=== PATIENT | female | born 1955 | race Caucasian/White ===

== ENCOUNTER → 2017-04-09 | Outpatient (CLI) | payer BC ==
[~2017-04-09] MED LIST: BUPRTAB PO; CALC-338 PO; CHOL100010 PO; LEVO112T2 PO; LISI-461 PO; MULT-506 PO; OMEG10007 PO; RSTOPS OPB
[2017-04-09 12:42] LABS: BLOOD UREA NITROGEN 12 mg/dl (7-18); BUN/CREATININE RATIO 12.3 (10-20); CALCIUM 9.1 mg/dl (8.5-10.1); CARBON DIOXIDE 27 mmol/L (21-32); CHLORIDE 108 mmol/L (98-107); CREATININE 0.95 mg/dl (0.60-1.20); GLUCOSE 93 mg/dl (70-99); POTASSIUM 4.1 mmol/L (3.5-5.1); SODIUM 142 mmol/L (136-145)
[2017-04-09 12:43] LABS: ESTIMATED AVERAGE GLUCOSE 123 mg/dl; HA1C FLAG Normal (Normal)
== END | disposition home or self-care (01) ==
LOC: C.LABBFT 07:58
PROVIDERS: ATTEND Nurse Practitioner
DX: I10 Essential (primary) hypertension (principal); R73.03 Prediabetes

== ENCOUNTER → 2017-04-22 | Outpatient (CLI) | payer BC ==
--- NOTE | 2017-04-23 09:07 | MAMMOGRAPHY REPORT ---
BILATERAL DIGITAL SCREENING MAMMOGRAM TOMOSYNTHESIS WITH CAD: 04/22/2017 CLINICAL HISTORY: Routine screening examination. TECHNIQUE: Breast tomosynthesis in addition to standard 2D mammography was performed. Current study was also evaluated with a Computer Aided Detection (CAD) system. COMPARISON: Comparison is made to exams dated: 07/19/2014 mammogram, 12/30/2013 mammogram, 12/30/2013 u ltrasound, 06/06/2013 mammogram, 06/06/2013 ultrasound, and 06/01/2013 mammogram - [facility] enter. BREAST COMPOSITION: The tissue of both breasts is heterogeneously dense, which may obscure small mas ses. FINDINGS: The parenchymal pattern is unchanged. No developing mass, architectural distortion or clus ter of suspicious microcalcifications is seen in either breast. IMPRESSION: ACR BI-RADS CATEGORY 2: BENIGN There is no mammographic evidence of malignancy. A 1 year screening mammogram is recommended. The pa tient will receive written notification of the results. Approximately 10% of breast cancers are not detected with mammography. A negative mammographic report should not delay biopsy if a clinically suggestive mass is present. Noreen Strauss M.D. ay/:04/22/2017 17:26:59 Medical Sonographer: Katrina BRISCOE([place])(M), [facility] letter sent: Normal 1/2 BI-RADS Code: ACR BI-RADS Category 2: Benign
== END | disposition home or self-care (01) ==
LOC: C.MAMM 08:08
PROVIDERS: ATTEND Internal Medicine
DX: Z12.31 Encounter for screening mammogram for malignant neoplasm of breast (principal)

== ENCOUNTER → 2017-07-10 | Outpatient (CLI) | payer BC ==
[2017-07-10 13:57] LABS: THYROID STIMULATING HORMONE 1.16 uIu/ml (0.300-4.500)
== END | disposition home or self-care (01) ==
LOC: C.LAB1850 12:06
PROVIDERS: ATTEND Internal Medicine Endocrinology, Diabetes & Metabolism
DX: E05.00 Thyrotoxicosis with diffuse goiter without thyrotoxic crisis or storm (principal); M81.0 Age-related osteoporosis without current pathological fracture

== ENCOUNTER → 2017-07-13 | Outpatient (CLI) | payer BC ==
[2017-07-13 18:19] LABS: CALCIUM URINE 13.4 mg/dl
== END | disposition home or self-care (01) ==
LOC: C.LAB1850 16:01
PROVIDERS: ATTEND Internal Medicine Endocrinology, Diabetes & Metabolism
DX: M81.0 Age-related osteoporosis without current pathological fracture (principal)

== ENCOUNTER → 2017-07-27 | Outpatient (CLI) | payer BC ==
[2017-07-27 14:31] LABS: BLOOD UREA NITROGEN 12 mg/dl (7-18); BUN/CREATININE RATIO 11.9 (10-20); CALCIUM 9.3 mg/dl (8.5-10.1); CARBON DIOXIDE 27 mmol/L (21-32); CHLORIDE 101 mmol/L (98-107); GLUCOSE 88 mg/dl (70-99); MAGNESIUM 2.1 mg/dl (1.8-2.4); POTASSIUM 3.8 mmol/L (3.5-5.1); SODIUM 136 mmol/L (136-145)
== END | disposition home or self-care (01) ==
LOC: C.LAB1850 13:14
PROVIDERS: ATTEND Internal Medicine Endocrinology, Diabetes & Metabolism
DX: R00.2 Palpitations (principal); M85.80 Other specified disorders of bone density and structure, unspecified site

== ENCOUNTER 2018-01-09 10:03 | Emergency (ER) | payer BC ==
[~2018-01-09] VITALS: Ht 152.4 cm; Wt 80.6 kg
[2018-01-09 10:07] VITALS: TEMP 37; Ht 152.4 cm; Wt 80.6 kg
[2018-01-09] MEDS ORDERED: LEVO112T4 PO (10:44)
[2018-01-09] MEDS ORDERED: LISI40TA PO (10:45)
[2018-01-09] MEDS ORDERED: CHOL2000 PO (10:47)
--- NOTE | 2018-01-09 10:47 | EMERGENCY ROOM VISIT NOTE ---
History Report prepared by Olegario: Lynn Gavin Under the Supervision of: Dr. Yadiel Toledo M.D. First contact with patient: 10:17 Chief Complaint: EYE ASSESSMENT Stated Complaint: BURST BLOOD VESSEL IN EYE History of Present Illness The patient is a 62 year old female who presents to the Emergency Room with complaints of a burst blood vessel in her left eye beginning this morning. She denies any pain or changes in her vision. She also reports no blood has come out of her eyes. She notes lubricating drops help for a while. She states this has never happened before and she randomly woke up with it this morning. She denies any recent vomiting, history of extreme coughing, or straining. 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 A total of ten systems were reviewed and were otherwise negative. Family History FH: cancer FHx: diabetes mellitus Heart disease High blood pressure Social History Smoking Status: Never Smoker Smokeless Tobacco Use: No Alcohol Use: occasionally Occupation Status: employed Current/Historical Medications Scheduled Bupropion Hcl (Wellbutrin Xl), 150 MG PO DAILY Cholecalciferol (Vitamin D3), 4,000 UNITS PO DAILY Coenzyme Q10 (Ubidecarenone) (Co Q-10), 150 MG PO BID Cyclosporine (Ophth) (Restasis), 1 DROP OP BID Fish Oil ([place]-3), 1,200 MG PO BID Levothyroxine Sodium (Synthroid), 112 MCG PO UD Levothyroxine Sodium (Levothyroxine Sodium), 168 MCG PO UD Lisinopril (Zestril), 40 MG PO DAILY Multivitamin (Multivitamin), 1 TAB PO DAILY [magnesium glycinate], 400 MG PO DAILY Allergies Coded Allergies: Nabumetone (Verified Allergy, Unknown, SWELLING, 01/09/18) Sulfa Drugs (Unverified Allergy, Unknown, SWELLING, 01/09/18) Alendronate (Unverified Adverse Reaction, Severe, chronic indigestion, 08/19) Chlorthalidone (Unverified Adverse Reaction, Severe, racing heartbeat, 08/19) Amoxicillin (Verified Adverse Reaction, Unknown, GI SYMPTOMS, 01/09/18) VOMITING Clavulanic Acid (Verified Adverse Reaction, Unknown, GI SYMPTOMS, 01/09/18) VOMITING Physical Exam Vital Signs Date Time Temp Pulse Resp B/P (MAP) Pulse Ox O2 Delivery O2 Flow Rate FiO2 01/09/18 11:06 100 20 166/99 100 Room Air 01/09/18 10:27 108 16 172/116 99 01/09/18 10:07 37.0 124 18 171/102 98 Room Air Right Eye Acuity: 20/20 Left Eye Acuity: 20/20 Physical Exam Physical Exam GENERAL: [He/She] is oriented to person, place, and time. [He/She] appears well -developed and well-nourished. [He/She] does not appear distressed. ____ HENT: Exam performed. Head: Normocephalic and atraumatic. Right Ear: External ear normal. No mastoid tenderness. Left Ear: External ear normal. No mastoid tenderness. Mouth/Throat: The oropharynx is clear and moist. No trismus in the jaw. No dental abscesses or uvula swelling. No oropharyngeal exudate or tonsillar abscesses. ____ EYES: Conjunctivae and EOM are normal. Pupils are equal, round, and reactive to light. Right eye exhibits no discharge. Left eye exhibits no discharge. No scleral icterus. Left eye subconjunctival hemorrhage. Right eye no subconjunctival hemorrhage..____ NECK: Normal range of motion. Neck supple. No JVD present. No spinous process tenderness present. No carotid bruit present. No rigidity. No tracheal deviation and normal range of motion present. No Brudzinski's sign and no Kernig 's sign noted. ____ CV: Normal rate, regular rhythm, normal heart sounds and intact distal pulses. There is no peripheral edema. Palpable radial pulses bue. ____ PULM/CHEST: Effort normal and breath sounds normal. No respiratory distress. No stridor. [He/She] has no wheezes. [He/She] has no rales. Chest Wall: [He/She] exhibits no tenderness. ____ ABD: The abdomen is soft. Bowel sounds are normal. [He/She] has no distension. No mass is present. There is no tenderness. There is no rebound, no guarding, no Hernandez's sign and no tenderness at McBurney's point. Rovsig negative MUSC/SKEL: Normal range of motion. There is no peripheral edema, tenderness or deformity. LYMPH: No cervical adenopathy. ____ NEURO: [He/She] is alert and oriented to person, place, and time. [He/She] has normal strength. No cranial nerve deficit or sensory deficit. Coordination and gait normal. GCS eye subscore is 4. GCS verbal subscore is 5. GCS motor subscore is 6. Cerebellar tests wnl. ____ SKIN: Skin is warm and dry. [He/She] is not diaphoretic. ____ PSYCH: [He/She] has a normal mood and affect. [His/Her] behavior is normal. Judgment and thought content normal. ____ Medical Decision & Procedures ED Course 1043: The patient was evaluated in room A12. A complete history and physical exam was performed. Patient has subconjunctival hemorrhage. No changes in vision. Discharge with follow-up PCP. DISCHARGE - Plan of care discussed with patient and questions answered. The patient was given both verbal and printed discharge instructions. The patient verbalized understanding and ability to comply. The patient is to seek outpatient follow up as noted in the discharge instructions. The patient verbalized understanding and ability to comply. The patient is discharged in stable condition. The patient was instructed to return for worsening symptoms. Medical Decision The patient was evaluated in room A12. A complete history and physical exam was performed. Patient has subconjunctival hemorrhage. No changes in vision. Discharge with follow-up PCP. DISCHARGE - Plan of care discussed with patient and questions answered. The patient was given both verbal and printed discharge instructions. The patient verbalized understanding and ability to comply. The patient is to seek outpatient follow up as noted in the discharge instructions. The patient verbalized understanding and ability to comply. The patient is discharged in stable condition. The patient was instructed to return for worsening symptoms. Medication Reconcilliation Current Medication List: was personally reviewed by me Blood Pressure Screening Patient's blood pressure: Elevated blood pressure Blood pressure disposition: Elevated BP felt to be situational Impression Primary Impression: Subconjunctival hemorrhage Scribe Attestation The scribe's documentation has been prepared under my direction and personally reviewed by me in its entirety. I confirm that the note above accurately reflects all work, treatment, procedures, and medical decision making performed by me. Departure Information Dispostion Home / Self-Care Referrals Kiet Linares M.D. (PCP) Forms HOME CARE DOCUMENTATION FORM, IMPORTANT VISIT INFORMATION, WORK / SCHOOL INSTRUCTIONS Patient Instructions My [facility] Additional Instructions Follow-up with your custom designer in 1-2 weeks Problem Qualifiers Primary Impression: Subconjunctival hemorrhage Laterality: left Qualified Codes: H11.32 - Conjunctival hemorrhage, left eye
[2018-01-09] MEDS ORDERED: COEN150C PO (10:49)
[2018-01-09] MEDS ORDERED: magnesium glycinate PO (10:51)
[2018-01-09] MEDS ORDERED: CYCL0.052 OP (10:52)
[2018-01-09 11:06] VITALS: BP 166/99; PULSE 100; O2SAT 100
== END 2018-01-09 11:13 | disposition home or self-care (01) ==
LOC: C.EDB 10:05 → C.EDA 11:13
DX: H11.32 Conjunctival hemorrhage, left eye (principal); R03.0 Elevated blood-pressure reading, without diagnosis of hypertension; Z88.6 Allergy status to analgesic agent; Z88.2 Allergy status to sulfonamides; Z88.1 Allergy status to other antibiotic agents; Z88.8 Allergy status to other drugs, medicaments and biological substances; Z91.048 Other nonmedicinal substance allergy status; Z83.3 Family history of diabetes mellitus; Z82.49 Family history of ischemic heart disease and other diseases of the circulatory system